=== PATIENT | male | born 1945 | race Caucasian/White ===

== ENCOUNTER 2021-05-10 22:58 | Inpatient (IN) ==
[2021-05-11 00:32] LABS: ABS Basophils 0.1 10^3/ul (0-0.2); ABS Eosinophils 0.2 10^3/ul (0-0.6); ABS Lymphocytes 1.5 10^3/ul (1.0-4.8); ABS Monocytes 0.6 10^3/ul (0-0.8); Eosinophil % 3.7 %; Hematocrit 43 % (42-52); Hemoglobin 14.2 g/dL (14.0-18.0); Lymphocyte % 24.1 %; Mean Corpuscular HGB Conc 33 g/dL (31-36); Mean Corpuscular Hemoglobin 31 pg (27-31); Mean Corpuscular Volume 92 fL (80-94); Mean Platelet Volume 9.1 fL (7.4-10.4); Nucleated Red Blood Cells % 0.1; Platelet Count 224 10^3/uL (150-450); Red Blood Count 4.65 10^6 /uL (4.18-5.48); Red Cell Distribution Width 15 % (10-15); White Blood Count 6.4 10^3/uL (3.5-10.8)
[2021-05-11 00:40] LABS: INR 1.03 (0.86-1.15)
[2021-05-11 00:45] LABS: Anion Gap 6 mmol/L (2-11); CO2 Carbon Dioxide 28 mmol/L (22-32); Calcium 9.4 mg/dL (8.6-10.3); Chloride 107 mmol/L (101-111); Magnesium 2.2 mg/dL (1.9-2.7); Potassium 3.4 mmol/L (3.5-5.0); Sodium 141 mmol/L (135-145)
[2021-05-11 00:50] LABS: Acetaminophen < 15 mcg/mL; Alcohol, S < 13 mg/dL (<13); Salicylate < 2.50 mg/dL (<30)
[2021-05-11 00:51] LABS: Blood Urea Nitrogen 28 mg/dL (6-24); Glucose 97 mg/dL (70-100)
[2021-05-11 00:52] LABS: ALT 17 U/L (7-52); AST 18 U/L (13-39); Albumin/Globulin Ratio 1.7 (1-3); Alkaline Phosphatase 109 U/L (35-149); Creatine Kinase 47 U/L (10-223); Globulin 2.4 g/dL (2-4); Total Protein 6.4 g/dL (6.4-8.9); eGFR CKD-EPI 57.1 (>60)
[2021-05-11] MEDS ORDERED: NS 0.9% 500 ml BAG 500 ML IV ONE (00:52)
[2021-05-11 00:53] LABS: Troponin I 0.02 ng/mL (<0.03)
[2021-05-11 00:55] LABS: Urine Appearance Clear; Urine Bilirubin Negative (Negative); Urine Blood Negative (Negative); Urine Color Yellow; Urine Glucose Negative (Negative); Urine Ketones Negative (Negative); Urine Nitrite Negative (Negative); Urine Protein Negative (Negative); Urine Specific Gravity 1.025 (1.002-1.030); Urine Urobilinogen Negative (Negative)
[2021-05-11 01:18] LABS: Urine Benzodiazepine Screen None Detected (None Detect); Urine Cannabinoids Screen None Detected (None Detect); Urine Opiates Screen None Detected (None Detect)
[2021-05-11 01:53] LABS: TSH Ultra Thyroid Stim Horm 5.06 mcIU/mL (0.34-5.60)
[2021-05-11 02:05] LABS: Rapid COVID-19 Molecular Undetected (Undetected)
[2021-05-11] MEDS ORDERED: Potassium Chlor 20 meq TAB.ER PO ONE (06:34)
[2021-05-11] MEDS: Dextran 70/Hypromellose Tears Eye Drops 15 ml BTL (for Artificials Tears) BOTH EYES SCH ×4 (08:37→22:31)
[2021-05-11] MEDS: NF: Brinzolamid/Brimonidin OPH(NF) 1 DROP BTL BOTH EYES SCH (11:58)
[2021-05-11] MEDS: Cholecalciferol (VIT D3) 1,000 unit TAB PO SCH (11:59)
[2021-05-11] MEDS ORDERED: Gadoteridol (CONTRAST) 279.3 MG/ML 10 ML IV ONE (12:54)
[2021-05-11] MEDS ORDERED: Iodixanol (CONTRAST) 320 MG/ML 100 ML SDV IV ONE (14:25)
[2021-05-11 20:35] LABS: PSA Screening Total 3.162 ng/mL (0-4.000)
[2021-05-12 07:03] LABS: Calcium 9.6 mg/dL (8.6-10.3); Potassium 3.9 mmol/L (3.5-5.0); eGFR CKD-EPI 67.7 (>60)
[2021-05-12] MEDS: Cholecalciferol (VIT D3) 1,000 unit TAB PO SCH (08:25)
[2021-05-12] MEDS: Dextran 70/Hypromellose Tears Eye Drops 15 ml BTL (for Artificials Tears) BOTH EYES SCH ×4 (08:29→19:52)
[2021-05-12] MEDS: NF: Brinzolamid/Brimonidin OPH(NF) 1 DROP BTL BOTH EYES SCH (08:31)
[2021-05-12] MEDS ORDERED: Gadoteridol (CONTRAST) 279.3 MG/ML 10 ML IV ONE (19:02)
[2021-05-12] MEDS ORDERED: Enoxaparin 40 MG/0.4 ML SYR SUBCUT SCH (20:00)
[2021-05-13] MEDS: Cholecalciferol (VIT D3) 1,000 unit TAB PO SCH (08:42)
[2021-05-13] MEDS: Dextran 70/Hypromellose Tears Eye Drops 15 ml BTL (for Artificials Tears) BOTH EYES SCH ×2 (08:42→12:43)
[2021-05-13] MEDS: NF: Brinzolamid/Brimonidin OPH(NF) 1 DROP BTL BOTH EYES SCH (08:49)
[2021-05-13 09:53] LABS: Calcium 9.3 mg/dL (8.6-10.3); Magnesium 2.1 mg/dL (1.9-2.7); Potassium 3.7 mmol/L (3.5-5.0); eGFR CKD-EPI 71.5 (>60)
[2021-05-13 11:50] VITALS: BP 129/66
== END 2021-05-13 14:40 | disposition home or self-care (01) | DRG 55 ==
LOC: ED 22:58 → EDHOLD 22:58 → SUATTDRO 05-11 06:31 → EDHOLD 05-11 08:57 → MEDTELE 05-11 09:43
PROVIDERS: ADMIT Internal Medicine; ATTEND Internal Medicine

== ENCOUNTER 2021-08-26 18:37 | Inpatient (IN) ==
[2021-08-27] MEDS ORDERED: Ondansetron 4 mg VIAL 2 MG/ML 2 ml VIAL IV PRN (00:09)
[2021-08-27] MEDS ORDERED: Heparin DRIP 25,000 UNITS BAG 25,000 UNITS/500 ML BAG IV SCH ×3 (00:45→19:14)
[2021-08-27] MEDS ORDERED: Heparin 5000 UNITS/ML 1 mL VIAL IV SCH ×2 (01:00→08:00)
[2021-08-27 02:12] LABS: Hematocrit 41 % (42-52); Hemoglobin 13.8 g/dL (14.0-18.0); Mean Corpuscular HGB Conc 34 g/dL (31-36); Mean Corpuscular Hemoglobin 31 pg (27-31); Mean Corpuscular Volume 93 fL (80-94); Mean Platelet Volume 8.2 fL (7.4-10.4); Platelet Count 164 10^3/uL (150-450); Red Blood Count 4.41 10^6 /uL (4.18-5.48); Red Cell Distribution Width 17 % (10-15); White Blood Count 9.5 10^3/uL (3.5-10.8)
[2021-08-27] MEDS ORDERED: Lactated Ringers 1000 ml BAG 1,000 ML IV ONE (02:27)
[2021-08-27 02:45] LABS: eGFR CKD-EPI 76.6 (>60)
[2021-08-27 02:55] LABS: Albumin 3.6 g/dL (3.2-5.2); Albumin/Globulin Ratio 1.5 (1-3); Calcium 8.9 mg/dL (8.6-10.3); Globulin 2.4 g/dL (2-4); Magnesium 2.4 mg/dL (1.9-2.7); Total Bilirubin 0.5 mg/dL (0.2-1.0)
[2021-08-27 03:09] LABS: ABS Lymphocytes 0.9 10^3/ul (1.0-4.8); ABS Monocytes 0.4 10^3/ul (0-0.8); ABS Neutrophils 8.1 10^3/ul (1.5-7.7); Lymphocyte % 9.9 %
[2021-08-27 03:26] LABS: Potassium 4.1 mmol/L (3.5-5.0)
[2021-08-27] MEDS ORDERED: hydrALAZINE 20 mg/ml 1 ML Vial IV IV SLOW PU ONE ×3 (03:46→23:33)
[2021-08-27] MEDS ORDERED: Nitro 2% OINT (Nitroglycerin) 1 INCH/PAK TOPICAL ONE ×3 (05:01→06:40)
[2021-08-27 07:32] LABS: TSH Ultra Thyroid Stim Horm 1.29 mcIU/mL (0.34-5.60)
[2021-08-27] MEDS: Polyethylene Glycol 3350 17 GM PACKET PO SCH (09:14)
[2021-08-27] MEDS: Sulfamethox/Trimethoprim DS TAB 800/160 mg PO SCH (09:16)
[2021-08-27] MEDS: Carboxymethylcellulos 1% OPTH 1 AMP BOTH EYES SCH ×4 (09:25→21:37)
[2021-08-27 09:43] LABS: Hematocrit 42 % (42-52); Hemoglobin 14.4 g/dL (14.0-18.0); Mean Corpuscular HGB Conc 34 g/dL (31-36); Mean Corpuscular Hemoglobin 31 pg (27-31); Mean Corpuscular Volume 91 fL (80-94); Mean Platelet Volume 7.6 fL (7.4-10.4); Platelet Count 161 10^3/uL (150-450); Red Blood Count 4.64 10^6 /uL (4.18-5.48); Red Cell Distribution Width 18 % (10-15); White Blood Count 9.3 10^3/uL (3.5-10.8)
[2021-08-27 10:02] LABS: ABS Basophils 0.1 10^3/ul (0-0.2); ABS Lymphocytes 1.4 10^3/ul (1.0-4.8); ABS Monocytes 0.4 10^3/ul (0-0.8); ABS Neutrophils 7.4 10^3/ul (1.5-7.7); Lymphocyte % 15.5 %; Nucleated Red Blood Cells % 0.1
[2021-08-27 10:29] LABS: eGFR CKD-EPI 84.6 (>60)
[2021-08-27] MEDS: PTO:Brinzolamid/Brimonidin OPH(NF) 1 DROP BTL BOTH EYES SCH (11:26)
[2021-08-27] MEDS: Senna TAB 8.6 mg TAB PO SCH (21:37)
[2021-08-28 03:45] LABS: Hematocrit 41 % (42-52); Hemoglobin 13.9 g/dL (14.0-18.0); Mean Corpuscular HGB Conc 34 g/dL (31-36); Mean Corpuscular Hemoglobin 31 pg (27-31); Mean Corpuscular Volume 94 fL (80-94); Mean Platelet Volume 8.1 fL (7.4-10.4); Platelet Count 173 10^3/uL (150-450); Red Blood Count 4.43 10^6 /uL (4.18-5.48); Red Cell Distribution Width 17 % (10-15)
[2021-08-28] MEDS: NICARDIPINE 20 MG/200 ML IV SCH ×2 (03:51→09:35)
[2021-08-28] MEDS: [UNRECOGNIZED DRUG - OTHER] IV SCH ×2 (03:51→09:35)
[2021-08-28 04:37] LABS: ABS Lymphocytes 1.1 10^3/ul (1.0-4.8); ABS Monocytes 0.5 10^3/ul (0-0.8); ABS Neutrophils 8.4 10^3/ul (1.5-7.7); Lymphocyte % 11.3 %
[2021-08-28] MEDS: Sulfamethox/Trimethoprim DS TAB 800/160 mg PO SCH (07:49)
[2021-08-28] MEDS: Polyethylene Glycol 3350 17 GM PACKET PO SCH (07:50)
[2021-08-28] MEDS: Carboxymethylcellulos 1% OPTH 1 AMP BOTH EYES SCH ×4 (08:04→20:24)
[2021-08-28] MEDS: PTO:Brinzolamid/Brimonidin OPH(NF) 1 DROP BTL BOTH EYES SCH (09:37)
[2021-08-28] MEDS: Senna TAB 8.6 mg TAB PO SCH (20:24)
[2021-08-28 21:29] LABS: Hematocrit 37 % (42-52); Hemoglobin 12.2 g/dL (14.0-18.0); Mean Corpuscular HGB Conc 33 g/dL (31-36); Mean Corpuscular Hemoglobin 31 pg (27-31); Mean Corpuscular Volume 93 fL (80-94); Mean Platelet Volume 7.9 fL (7.4-10.4); Platelet Count 166 10^3/uL (150-450); Red Blood Count 3.96 10^6 /uL (4.18-5.48); Red Cell Distribution Width 18 % (10-15); White Blood Count 11.2 10^3/uL (3.5-10.8)
[2021-08-28 22:05] LABS: ABS Monocytes 0.7 10^3/ul (0-0.8); ABS Neutrophils 9.4 10^3/ul (1.5-7.7); Lymphocyte % 9.4 %; Nucleated Red Blood Cells % 0.1
[2021-08-29] MEDS ORDERED: [UNRECOGNIZED DRUG - OTHER] IV SCH (04:00)
[2021-08-29] MEDS ORDERED: NICARDIPINE 20 MG/200 ML IV SCH (04:00)
[2021-08-29 04:13] LABS: Hematocrit 41 % (42-52); Hemoglobin 13.4 g/dL (14.0-18.0); Mean Corpuscular HGB Conc 33 g/dL (31-36); Mean Corpuscular Hemoglobin 31 pg (27-31); Mean Corpuscular Volume 94 fL (80-94); Mean Platelet Volume 8.1 fL (7.4-10.4); Platelet Count 175 10^3/uL (150-450); Red Blood Count 4.36 10^6 /uL (4.18-5.48); Red Cell Distribution Width 17 % (10-15); White Blood Count 12.5 10^3/uL (3.5-10.8)
[2021-08-29 04:49] LABS: eGFR CKD-EPI 54.6 (>60)
[2021-08-29 05:04] LABS: ABS Lymphocytes 1.1 10^3/ul (1.0-4.8); ABS Monocytes 0.5 10^3/ul (0-0.8); ABS Neutrophils 10.9 10^3/ul (1.5-7.7); Lymphocyte % 8.8 %; Nucleated Red Blood Cells % 0.1
[2021-08-29 06:54] LABS: Calcium 8.8 mg/dL (8.6-10.3); Potassium 4.3 mmol/L (3.5-5.0)
[2021-08-29] MEDS: Sulfamethox/Trimethoprim DS TAB 800/160 mg PO SCH (09:17)
[2021-08-29] MEDS: Polyethylene Glycol 3350 17 GM PACKET PO SCH (09:17)
[2021-08-29] MEDS: Carboxymethylcellulos 1% OPTH 1 AMP BOTH EYES SCH ×4 (09:19→21:56)
[2021-08-29] MEDS: PTO:Brinzolamid/Brimonidin OPH(NF) 1 DROP BTL BOTH EYES SCH (09:20)
[2021-08-29] MEDS: Enoxaparin 80 MG/0.8 ML SYR SUBCUT SCH (13:16)
[2021-08-29] MEDS: Senna TAB 8.6 mg TAB PO SCH (21:59)
[2021-08-30] MEDS: Enoxaparin 80 MG/0.8 ML SYR SUBCUT SCH ×2 (03:17→14:02)
[2021-08-30] MEDS: hydrALAZINE 20 mg/ml 1 ML Vial IV IV SLOW PU PRN (03:50)
[2021-08-30 05:04] LABS: Hematocrit 35 % (42-52); Hemoglobin 11.7 g/dL (14.0-18.0); Mean Corpuscular HGB Conc 33 g/dL (31-36); Mean Corpuscular Hemoglobin 31 pg (27-31); Mean Corpuscular Volume 93 fL (80-94); Mean Platelet Volume 8.1 fL (7.4-10.4); Platelet Count 163 10^3/uL (150-450); Red Blood Count 3.77 10^6 /uL (4.18-5.48); Red Cell Distribution Width 17 % (10-15); White Blood Count 11.6 10^3/uL (3.5-10.8)
[2021-08-30 05:19] LABS: ABS Lymphocytes 1.3 10^3/ul (1.0-4.8); ABS Monocytes 0.5 10^3/ul (0-0.8); ABS Neutrophils 9.8 10^3/ul (1.5-7.7); Lymphocyte % 10.8 %; Nucleated Red Blood Cells % 0.1
[2021-08-30 05:22] LABS: Albumin 3.4 g/dL (3.2-5.2); Albumin/Globulin Ratio 1.8 (1-3); Calcium 8.6 mg/dL (8.6-10.3); Globulin 1.9 g/dL (2-4); Magnesium 2.2 mg/dL (1.9-2.7); Potassium 4.4 mmol/L (3.5-5.0); Total Bilirubin 0.5 mg/dL (0.2-1.0); Total Protein 5.3 g/dL (6.4-8.9); eGFR CKD-EPI 60.5 (>60)
[2021-08-30] MEDS: Polyethylene Glycol 3350 17 GM PACKET PO SCH (10:01)
[2021-08-30] MEDS: Sulfamethox/Trimethoprim DS TAB 800/160 mg PO SCH (10:02)
[2021-08-30] MEDS: Carboxymethylcellulos 1% OPTH 1 AMP BOTH EYES SCH ×4 (10:03→21:08)
[2021-08-30] MEDS: PTO:Brinzolamid/Brimonidin OPH(NF) 1 DROP BTL BOTH EYES SCH (10:03)
[2021-08-30 17:04] LABS: Hematocrit 35 % (42-52); Hemoglobin 11.9 g/dL (14.0-18.0)
[2021-08-30] MEDS: Senna TAB 8.6 mg TAB PO SCH (21:07)
[2021-08-31] MEDS: Enoxaparin 80 MG/0.8 ML SYR SUBCUT SCH ×2 (02:00→15:45)
[2021-08-31] MEDS: hydrALAZINE 20 mg/ml 1 ML Vial IV IV SLOW PU PRN (02:10)
[2021-08-31 05:23] LABS: Hematocrit 32 % (42-52); Hemoglobin 10.7 g/dL (14.0-18.0); Mean Corpuscular HGB Conc 34 g/dL (31-36); Mean Corpuscular Hemoglobin 31 pg (27-31); Mean Corpuscular Volume 94 fL (80-94); Mean Platelet Volume 8.3 fL (7.4-10.4); Platelet Count 162 10^3/uL (150-450); Red Blood Count 3.41 10^6 /uL (4.18-5.48); Red Cell Distribution Width 17 % (10-15)
[2021-08-31 05:50] LABS: Calcium 8.6 mg/dL (8.6-10.3); Potassium 4.4 mmol/L (3.5-5.0); eGFR CKD-EPI 71.5 (>60)
[2021-08-31 06:17] LABS: Anisocytosis 1+
[2021-08-31 06:18] LABS: ABS Lymphocytes 1.4 10^3/ul (1.0-4.8); ABS Monocytes 0.7 10^3/ul (0-0.8); ABS Neutrophils 9.9 10^3/ul (1.5-7.7); Lymphocyte % 11.9 %; Nucleated Red Blood Cells % 0.2
[2021-08-31] MEDS: Polyethylene Glycol 3350 17 GM PACKET PO SCH (07:32)
[2021-08-31] MEDS: Sulfamethox/Trimethoprim DS TAB 800/160 mg PO SCH (10:14)
[2021-08-31] MEDS: PTO:Brinzolamid/Brimonidin OPH(NF) 1 DROP BTL BOTH EYES SCH (10:15)
[2021-08-31] MEDS: Carboxymethylcellulos 1% OPTH 1 AMP BOTH EYES SCH ×4 (10:15→22:33)
[2021-08-31] MEDS ORDERED: cefTRIAXone 2 gm/50 mL D5W 2 GM/50 ML BAG IV ONE (17:22)
[2021-08-31] MEDS: Senna TAB 8.6 mg TAB PO SCH (22:32)
[2021-09-01] MEDS: Enoxaparin 80 MG/0.8 ML SYR SUBCUT SCH ×2 (02:44→14:07)
[2021-09-01 05:32] LABS: Hematocrit 28 % (42-52); Hemoglobin 9.5 g/dL (14.0-18.0); Mean Corpuscular HGB Conc 34 g/dL (31-36); Mean Corpuscular Hemoglobin 31 pg (27-31); Mean Corpuscular Volume 94 fL (80-94); Mean Platelet Volume 8.6 fL (7.4-10.4); Platelet Count 156 10^3/uL (150-450); Red Blood Count 3.02 10^6 /uL (4.18-5.48); Red Cell Distribution Width 17 % (10-15); White Blood Count 10.9 10^3/uL (3.5-10.8)
[2021-09-01 05:40] LABS: ABS Lymphocytes 1.5 10^3/ul (1.0-4.8); ABS Monocytes 0.6 10^3/ul (0-0.8); ABS Neutrophils 8.8 10^3/ul (1.5-7.7); ABS Nucleated RBC 0.1 10^3/ul; Lymphocyte % 13.5 %; Nucleated Red Blood Cells % 0.4
[2021-09-01] MEDS: PTO:Brinzolamid/Brimonidin OPH(NF) 1 DROP BTL BOTH EYES SCH (07:47)
[2021-09-01] MEDS: Polyethylene Glycol 3350 17 GM PACKET PO SCH ×2 (07:54→10:39)
[2021-09-01] MEDS: Carboxymethylcellulos 1% OPTH 1 AMP BOTH EYES SCH ×4 (08:03→19:57)
[2021-09-01] MEDS: Sulfamethox/Trimethoprim DS TAB 800/160 mg PO SCH (09:42)
[2021-09-01] MEDS: Senna TAB 8.6 mg TAB PO SCH (19:56)
[2021-09-02] MEDS: Enoxaparin 80 MG/0.8 ML SYR SUBCUT SCH (03:36)
[2021-09-02] MEDS: Sulfamethox/Trimethoprim DS TAB 800/160 mg PO SCH (09:20)
[2021-09-02] MEDS: Polyethylene Glycol 3350 17 GM PACKET PO SCH (09:22)
[2021-09-02] MEDS: Carboxymethylcellulos 1% OPTH 1 AMP BOTH EYES SCH (09:26)
[2021-09-02] MEDS: PTO:Brinzolamid/Brimonidin OPH(NF) 1 DROP BTL BOTH EYES SCH (09:26)
[2021-09-02 09:46] VITALS: BP 143/87
== END 2021-09-02 13:30 | disposition home health service (06) | DRG 134 ==
LOC: ED 18:37 → EDHOLD 08-27 00:09 → SUATTDRO 08-27 00:09 → EDHOLD 08-27 16:30 → ICU 08-27 16:36 → MEDTELE 08-31 11:39
PROVIDERS: ADMIT Internal Medicine; ATTEND Internal Medicine Critical Care Medicine